=== PATIENT | male | born 1955 | race Caucasian/White ===

== ENCOUNTER 2018-04-14 12:56 | Inpatient (IN) | payer OTHER ==
[~2018-04-14] VITALS: Ht 172.7 cm; Wt 125.0 kg
[2018-04-14] VITALS (8 sets, daily range): BP systolic 136–158; BP diastolic 81–100
[2018-04-14] MEDS ORDERED: normal saline 1000ML IV soln IV ONE (13:15)
[2018-04-14] MEDS ORDERED: LORazepam 2 mg/ml vial IV ONE (13:15)
[2018-04-14] MEDS ORDERED: MIDAZolam 5mg/ml 2ml vial IV ONE (13:15)
[2018-04-14] MEDS ORDERED: fentaNYL/PF 50MCG/1 ML 2ML syringe IV ONE (13:15)
[2018-04-14] MEDS ORDERED: metoprolol tartrate 1mg/ml inj IV ONE (13:15)
[2018-04-14 13:22] LABS: BASOPHILS % (AUTO) 0.7 % (0-1); EOSINOPHILS % (AUTO) 0.2 % (0-6); HEMATOCRIT 48.5 % (42.0-52.0); HEMOGLOBIN 16.9 g/dl (14.0-17.9); LYMPHOCYTES % (AUTO) 39.3 % (21-51); MEAN CORPUSCULAR HEMOGLOBIN 35.7 PG (27.0-31.0); MEAN CORPUSCULAR HGB CONC 34.8 % (33.0-36.5); MEAN CORPUSCULAR VOLUME 102.8 FL (78-98); MEAN PLATELET VOLUME 7.8 FL (7.4-10.4); MONOCYTES # (AUTO) 0.9 X10'3 (0-0.9); MONOCYTES % (AUTO) 16.8 % (2-12); NEUTROPHILS # (AUTO) 2.3 X10'3 (1.8-7.7); PLATELET COUNT 122 X10'3 (140-440); RED BLOOD COUNT 4.72 X10'6 (4.70-6.10); RED CELL DISTRIBUTION WIDTH 11.9 % (11.5-14.5); WHITE BLOOD COUNT 5.2 X10'3 (4.5-11.0)
[2018-04-14] MEDS ORDERED: amiodarone 150mg/dext, iso-os 100 ML IV ONE (13:25)
[2018-04-14] MEDS ORDERED: magnesium 1gm/100ml D5W IVPB 100 ML IV STA (13:27)
[2018-04-14 13:33] LABS: ALANINE AMINOTRANSFERASE 61 U/L (12-78); ALBUMIN 3.7 G/DL (3.4-5.0); ALKALINE PHOSPHATASE 88 IU/L (46-116); ANION GAP 9 (8-16); ASPARTATE AMINO TRANSFERASE 62 U/L (10-37); BILIRUBIN,TOTAL 0.7 MG/DL (0.1-1.0); BLOOD UREA NITROGEN 9 MG/DL (7-18); CALCIUM 8.8 MG/DL (8.5-10.1); CHLORIDE 102 MMOL/L (99-107); CREATININE 1.13 MG/DL (0.60-1.10); GLUCOSE 157 MG/DL (70-104); POTASSIUM 3.8 MMOL/L (3.5-5.1); SODIUM 140 MMOL/L (135-145); TOTAL PROTEIN 7.5 G/DL (6.4-8.2); eGFR 65 ML/MIN
[2018-04-14 13:35] LABS: INR 1.3 INR; PARTIAL THROMBOPLASTIN TIME 34 SECONDS (22-32); PROTHROMBIN TIME 13.5 SECONDS (9.0-12.0)
[2018-04-14] MEDS ORDERED: aspirin 81mg tab.chew PO ONE (14:10)
[2018-04-14] MEDS ORDERED: morphine 4 MG/ML inj SYRINge IV ONE (14:10)
[2018-04-14] MEDS ORDERED: nitroGLYCERIN 0.4mg SUBLingual tab SL PRN (14:10)
[2018-04-14] MEDS: amiodarone/D5 360MG/200ML BAG 200 ML IV SCH ×2 (14:17→20:19)
[2018-04-14] MEDS ORDERED: TRAZ-219 PO (14:24)
[2018-04-14] MEDS ORDERED: PRAM0.5T3 PO (14:24)
[2018-04-14] MEDS ORDERED: RIVA20TA PO (14:24)
[2018-04-14] MEDS ORDERED: FLEC100T2 PO (14:24)
[2018-04-14] MEDS ORDERED: OMEP20TA23 PO (14:24)
[2018-04-14] MEDS ORDERED: METO100T7 PO (14:24)
[2018-04-14] MEDS ORDERED: amiodarone/D5 360MG/200ML BAG 200 ML IV SCH (14:42)
[2018-04-14] MEDS ORDERED: acetaminophen 325mg tablet PO PRN ×2 (14:45)
[2018-04-14] MEDS ORDERED: potassium Cl 20 mEq SR tablet PO PRN (14:45)
[2018-04-14] MEDS ORDERED: ondansetron/PF 4mg/2ml inj IV PRN (14:45)
[2018-04-14] MEDS ORDERED: potassium Cl 40MEQ/NS 500ml 500 ML IV PRN ×2 (14:45)
[2018-04-14] MEDS ORDERED: morphine 2 MG/ML inj. syringe IV PRN (14:45)
[2018-04-14 15:06] LABS: MAGNESIUM 1.8 MG/DL (1.5-2.4)
[2018-04-14] MEDS: docusate sod 100mg capsule PO SCH (20:51)
[2018-04-14] MEDS: pramipexole 0.25mg tablet PO SCH (20:51)
[2018-04-14] MEDS: traZODone 50mg tablet PO SCH (20:52)
[2018-04-14] MEDS: metoprolol succinate 25mg (24-HOUR) SR. Tablet PO SCH (20:52)
[2018-04-14] MEDS ORDERED: non-formulary drug (Metoprolol Succinate* (Toprol Xl*) 1 TAB) PO SCH (21:00)
[2018-04-14] MEDS ORDERED: PRAMIPEXOLE DI HCL 0.75 MG PO SCH (21:00)
[2018-04-14] MEDS ORDERED: non-formulary drug (Trazodone HCl 1 TAB) PO SCH (21:00)
[2018-04-15] VITALS (21 sets, daily range): BP systolic 108–175; BP diastolic 79–109
[2018-04-15] MEDS: amiodarone/D5 360MG/200ML BAG 200 ML IV SCH ×4 (01:33→20:21)
[2018-04-15 01:43] LABS: POTASSIUM 3.9 MMOL/L (3.5-5.1)
[2018-04-15] MEDS ORDERED: non-formulary drug (Omeprazole Magnesium (Prilosec Otc) 1 TAB) PO SCH (08:00)
[2018-04-15] MEDS ORDERED: rivaroxaban 20mg tablet PO SCH (08:00)
[2018-04-15] MEDS: docusate sod 100mg capsule PO SCH ×2 (08:00→20:21)
[2018-04-15] MEDS: pantoprazole 40mg Tablet.DR PO SCH (08:19)
[2018-04-15 08:28] LABS: BASOPHILS % (AUTO) 0.4 % (0-1); EOSINOPHILS % (AUTO) 1.1 % (0-6); HEMATOCRIT 46.5 % (42.0-52.0); HEMOGLOBIN 16.2 g/dl (14.0-17.9); LYMPHOCYTES # (AUTO) 1.3 X10'3 (1.1-4.8); LYMPHOCYTES % (AUTO) 29.8 % (21-51); MEAN CORPUSCULAR HEMOGLOBIN 35.6 PG (27.0-31.0); MEAN CORPUSCULAR HGB CONC 34.9 % (33.0-36.5); MEAN CORPUSCULAR VOLUME 102.2 FL (78-98); MONOCYTES # (AUTO) 0.6 X10'3 (0-0.9); MONOCYTES % (AUTO) 13.1 % (2-12); NEUTROPHILS # (AUTO) 2.5 X10'3 (1.8-7.7); NEUTROPHILS % (AUTO) 55.6 % (42-75); PLATELET COUNT 100 X10'3 (140-440); RED BLOOD COUNT 4.55 X10'6 (4.70-6.10); RED CELL DISTRIBUTION WIDTH 12.3 % (11.5-14.5); WHITE BLOOD COUNT 4.4 X10'3 (4.5-11.0)
[2018-04-15 08:33] LABS: ALANINE AMINOTRANSFERASE 64 U/L (12-78); ALBUMIN 3.3 G/DL (3.4-5.0); ALBUMIN/GLOBULIN RATIO 0.9 (1.1-1.5); ALKALINE PHOSPHATASE 77 IU/L (46-116); ANION GAP 5 (8-16); ASPARTATE AMINO TRANSFERASE 65 U/L (10-37); BILIRUBIN,TOTAL 0.6 MG/DL (0.1-1.0); BLOOD UREA NITROGEN 9 MG/DL (7-18); BUN/CREATININE RATIO 8.8 (5.4-32.0); CALCIUM 8.5 MG/DL (8.5-10.1); CHLORIDE 105 MMOL/L (99-107); CREATININE 1.02 MG/DL (0.60-1.10); GLUCOSE 119 MG/DL (70-104); MAGNESIUM 1.9 MG/DL (1.5-2.4); PHOSPHORUS 2.3 MG/DL (2.3-4.5); POTASSIUM 4.2 MMOL/L (3.5-5.1); SODIUM 141 MMOL/L (135-145); TOTAL CARBON DIOXIDE 30.9 MMOL/L (24-32); eGFR 74 ML/MIN
[2018-04-15 11:52] LABS: CHOL/HDL RATIO 3.2 (0.00-4.99); CHOLESTEROL 143 MG/DL (0-200); HDL CHOLESTEROL 45 MG/DL (35-60); LDL CHOLESTEROL 89 MG/DL (50-100); TRIGLYCERIDES 89 MG/DL (20-135)
[2018-04-15] MEDS: traZODone 50mg tablet PO SCH (20:22)
[2018-04-15] MEDS: metoprolol succinate 25mg (24-HOUR) SR. Tablet PO SCH (20:22)
[2018-04-15] MEDS: pramipexole 0.25mg tablet PO SCH (20:22)
[2018-04-16] VITALS (23 sets, daily range): BP systolic 114–171; BP diastolic 65–102
[2018-04-16] MEDS: amiodarone/D5 360MG/200ML BAG 200 ML IV SCH ×4 (02:39→20:51)
[2018-04-16 05:12] LABS: BASOPHILS % (AUTO) 0.3 % (0-1); EOSINOPHILS # (AUTO) 0.1 X10'3 (0-0.9); EOSINOPHILS % (AUTO) 1.3 % (0-6); HEMATOCRIT 46.8 % (42.0-52.0); HEMOGLOBIN 16.2 g/dl (14.0-17.9); LYMPHOCYTES # (AUTO) 1.4 X10'3 (1.1-4.8); LYMPHOCYTES % (AUTO) 30.6 % (21-51); MEAN CORPUSCULAR HEMOGLOBIN 35.8 PG (27.0-31.0); MEAN CORPUSCULAR HGB CONC 34.6 % (33.0-36.5); MEAN CORPUSCULAR VOLUME 103.4 FL (78-98); MEAN PLATELET VOLUME 7.8 FL (7.4-10.4); MONOCYTES # (AUTO) 0.4 X10'3 (0-0.9); MONOCYTES % (AUTO) 8.8 % (2-12); NEUTROPHILS # (AUTO) 2.7 X10'3 (1.8-7.7); PLATELET COUNT 104 X10'3 (140-440); RED BLOOD COUNT 4.53 X10'6 (4.70-6.10); RED CELL DISTRIBUTION WIDTH 11.9 % (11.5-14.5); WHITE BLOOD COUNT 4.6 X10'3 (4.5-11.0)
[2018-04-16 05:38] LABS: ALANINE AMINOTRANSFERASE 53 U/L (12-78); ALBUMIN/GLOBULIN RATIO 0.8 (1.1-1.5); ALKALINE PHOSPHATASE 71 IU/L (46-116); ANION GAP 6 (8-16); ASPARTATE AMINO TRANSFERASE 48 U/L (10-37); BILIRUBIN,TOTAL 0.5 MG/DL (0.1-1.0); BLOOD UREA NITROGEN 11 MG/DL (7-18); BUN/CREATININE RATIO 10.8 (5.4-32.0); CALCIUM 8.4 MG/DL (8.5-10.1); CHLORIDE 104 MMOL/L (99-107); CREATININE 1.02 MG/DL (0.60-1.10); GLUCOSE 140 MG/DL (70-104); MAGNESIUM 1.9 MG/DL (1.5-2.4); PHOSPHORUS 3.2 MG/DL (2.3-4.5); POTASSIUM 3.8 MMOL/L (3.5-5.1); SODIUM 139 MMOL/L (135-145); TOTAL CARBON DIOXIDE 28.9 MMOL/L (24-32); TOTAL PROTEIN 6.6 G/DL (6.4-8.2); eGFR 74 ML/MIN
[2018-04-16] MEDS ORDERED: fentaNYL/PF 50MCG/1 ML 2ML syringe ONE (06:02)
[2018-04-16] MEDS ORDERED: midazolam 2 mg/2 ml injection ONE (06:03)
[2018-04-16] MEDS ORDERED: LIDOcaine 1% (10mg/ml)w/preservative injection 20ml MDV ONE (06:03)
[2018-04-16] MEDS ORDERED: iohexol 350MG/ML 100ml bottle IV ONE (06:03)
[2018-04-16] MEDS ORDERED: heparin 1,000unit/ml 10ml vial 10 ML ONE (06:24)
[2018-04-16] MEDS ORDERED: nitroGLYCERIN-Tridil 50MG/D5W 250 ML IV ONE (06:24)
[2018-04-16] MEDS ORDERED: verapamil 2.5 mg/ml inj IV ONE (06:24)
[2018-04-16] MEDS: pantoprazole 40mg Tablet.DR PO SCH (07:56)
[2018-04-16] MEDS: docusate sod 100mg capsule PO SCH ×2 (07:56→20:38)
[2018-04-16] MEDS: HYDROcodone/acetaminophen 10/325mg tab PO PRN ×2 (07:57→18:37)
[2018-04-16] MEDS ORDERED: insulin regular, human inj. 100 UNITS in normal saline 100ml IV soln 100 ML IV SCH ×2 (08:25)
[2018-04-16] MEDS ORDERED: vancomycin/NS 1 GM ADD-VANTAGE 250 ML IV ONE (08:25)
[2018-04-16] MEDS ORDERED: dextrose 50%-water 50ml dispensing syringe IV PRN (08:25)
[2018-04-16] MEDS ORDERED: MESSAGE TO NURSING PO ONE ×5 (08:25→10:00)
[2018-04-16] MEDS ORDERED: cefazolin/dext.iso 2gm/50ml 50 ML IV ONE (08:25)
[2018-04-16] MEDS: insulin Lispro (HumaLOG) vial - multi-dose SQ SCH ×3 (09:00→18:00)
[2018-04-16 09:19] LABS: HEMATOCRIT 46.3 % (42.0-52.0); HEMOGLOBIN 16.6 g/dl (14.0-17.9); MEAN CORPUSCULAR HEMOGLOBIN 36.5 PG (27.0-31.0); MEAN CORPUSCULAR HGB CONC 35.9 % (33.0-36.5); MEAN CORPUSCULAR VOLUME 101.8 FL (78-98); MEAN PLATELET VOLUME 7.3 FL (7.4-10.4); PLATELET COUNT 106 X10'3 (140-440); RED BLOOD COUNT 4.55 X10'6 (4.70-6.10); WHITE BLOOD COUNT 4.4 X10'3 (4.5-11.0)
[2018-04-16 09:34] LABS: ALANINE AMINOTRANSFERASE 55 U/L (12-78); ALBUMIN 3.2 G/DL (3.4-5.0); ALBUMIN/GLOBULIN RATIO 0.9 (1.1-1.5); ALKALINE PHOSPHATASE 76 IU/L (46-116); ANION GAP 2 (8-16); ASPARTATE AMINO TRANSFERASE 45 U/L (10-37); BILIRUBIN,TOTAL 0.6 MG/DL (0.1-1.0); BLOOD UREA NITROGEN 9 MG/DL (7-18); CALCIUM 8.5 MG/DL (8.5-10.1); CHLORIDE 104 MMOL/L (99-107); GLUCOSE 119 MG/DL (70-104); POTASSIUM 4.1 MMOL/L (3.5-5.1); SODIUM 139 MMOL/L (135-145); TOTAL CARBON DIOXIDE 32.9 MMOL/L (24-32); TOTAL PROTEIN 6.7 G/DL (6.4-8.2); eGFR 75 ML/MIN
[2018-04-16 10:00] LABS: HEMOGLOBIN A1C 5.3 % (4.5-6.2)
[2018-04-16 10:02] LABS: INR 1.2 INR; PARTIAL THROMBOPLASTIN TIME 35 SECONDS (22-32)
[2018-04-16 13:20] LABS: ABG BASE EXCESS -0.2 mmol/L (-2.0-3.0); ABG HCO3 24.4 mmol/L (22.0-26.0); ABG OXYGEN SATURATION 95.1 % (95-98); ABG PCO2 (T) 39.6 mmHg (35.0-48.0); ABG PH (T) 7.407 (7.350-7.450); ABG PO2 (T) 78.4 mmHg (83-108); ALLEN'S TEST Positive; FCOHb 0.4 % (0.5-1.5); FLOW 6 L/min; FMetHb 0.2 % (0.3-1.12); FO2Hb 94.5 % (94-100); TOTAL HEMOGLOBIN 17.3 G/dl (14.0-18.0)
[2018-04-16 13:22] LABS: CLARITY,URINE CLEAR (Clear); COLOR,URINE YELLOW (Yellow); GLUCOSE, URINE NEGATIVE (Neg); KETONES,URINE NEGATIVE (Neg); LEUKOCYTE ESTERASE ,URINE NEGATIVE (Neg); NITRITES, URINE NEGATIVE (Neg); OCCULT BLOOD,URINE NEGATIVE (Neg); PROTEIN,URINE NEGATIVE (Neg)
[2018-04-16 13:28] LABS: UA COLLECTION TYPE NON-SPECIFIED
[2018-04-16] MEDS: pramipexole 0.25mg tablet PO SCH (20:37)
[2018-04-16] MEDS: metoprolol succinate 25mg (24-HOUR) SR. Tablet PO SCH (20:38)
[2018-04-16] MEDS: traZODone 50mg tablet PO SCH (20:38)
[2018-04-16] MEDS ORDERED: normal saline 1000ml 1,000 ML IV SCH (22:20)
[2018-04-16] MEDS ORDERED: ondansetron/PF 4mg/2ml inj IV PRN (22:20)
[2018-04-16] MEDS ORDERED: OXAZEpam 15mg capsule PO PRN (22:20)
[2018-04-16] MEDS ORDERED: proCHLORperazine 10 MG/2 ml inj IV PRN (22:25)
[2018-04-16] MEDS: mupirocin 2% nasal ointment 1gm UD NS SCH (22:37)
[2018-04-17] VITALS (20 sets, daily range): BP systolic 96–160; BP diastolic 60–98
[2018-04-17] MEDS: amiodarone/D5 360MG/200ML BAG 200 ML IV SCH ×4 (02:55→18:36)
[2018-04-17] MEDS ORDERED: ringers solution, lacted 1,000 ML IV ONE (05:30)
[2018-04-17] MEDS ORDERED: vancomycin/NS 1 GM ADD-VANTAGE 250 ML IV ONE (05:30)
[2018-04-17] MEDS ORDERED: cefazolin/dext.iso 2gm/100ml 100 ML IV ONE ×2 (05:30→06:00)
[2018-04-17] MEDS: insulin regular, human inj. 100 UNITS in normal saline 100ml IV soln 100 ML IV SCH ×12 (05:40→23:58)
[2018-04-17] MEDS ORDERED: famotidine 20mg tablet PO ONE (06:00)
[2018-04-17] MEDS ORDERED: LORazepam 2 mg/ml vial IV ONE (06:00)
[2018-04-17 06:34] LABS: BASOPHILS % (AUTO) 0.4 % (0-1); EOSINOPHILS # (AUTO) 0.1 X10'3 (0-0.9); EOSINOPHILS % (AUTO) 1.3 % (0-6); HEMATOCRIT 46.8 % (42.0-52.0); HEMOGLOBIN 16.6 g/dl (14.0-17.9); LYMPHOCYTES # (AUTO) 1.5 X10'3 (1.1-4.8); LYMPHOCYTES % (AUTO) 27.6 % (21-51); MEAN CORPUSCULAR HEMOGLOBIN 36.3 PG (27.0-31.0); MEAN CORPUSCULAR HGB CONC 35.5 % (33.0-36.5); MEAN CORPUSCULAR VOLUME 102.3 FL (78-98); MEAN PLATELET VOLUME 7.8 FL (7.4-10.4); MONOCYTES # (AUTO) 0.5 X10'3 (0-0.9); MONOCYTES % (AUTO) 8.5 % (2-12); NEUTROPHILS # (AUTO) 3.3 X10'3 (1.8-7.7); NEUTROPHILS % (AUTO) 62.2 % (42-75); PLATELET COUNT 113 X10'3 (140-440); RED BLOOD COUNT 4.57 X10'6 (4.70-6.10); RED CELL DISTRIBUTION WIDTH 11.9 % (11.5-14.5); WHITE BLOOD COUNT 5.4 X10'3 (4.5-11.0)
[2018-04-17] MEDS: mupirocin 2% nasal ointment 1gm UD NS SCH ×2 (06:54→20:00)
[2018-04-17] MEDS ORDERED: isoflurane 100ml inhalation liquid IH ONE (07:01)
[2018-04-17] MEDS ORDERED: heparin 10,000 units/1 ML INJ ONE (07:01)
[2018-04-17] MEDS ORDERED: magnesium sulf 1 GM/2 ML ONE (07:01)
[2018-04-17] MEDS ORDERED: phenylephrine 10mg/ml inj. ONE (07:01)
[2018-04-17] MEDS ORDERED: DOPamine/D5W 400mg/250ml bag IV ONE (07:01)
[2018-04-17] MEDS ORDERED: MIDAZolam 1mg/ml 10ml vial ONE (07:01)
[2018-04-17] MEDS ORDERED: potassium Cl 2 mEq/ml inj IV ONE (07:01)
[2018-04-17] MEDS ORDERED: SUFENTANIL CITRATE 50 MCG/ML 2ml ampule IV ONE (07:01)
[2018-04-17] MEDS ORDERED: sodium bicarbonate (8.4%) 1 mEq/ml syringe ONE (07:01)
[2018-04-17] MEDS ORDERED: albumin (human) 25% 100 ML IV solution IV ONE (07:01)
[2018-04-17] MEDS ORDERED: LIDOcaine 2% (20 mg/ml) 5ml cardiac syringe ONE (07:01)
[2018-04-17] MEDS ORDERED: methylPREDNISolone sod succ 1000mg vial ONE (07:01)
[2018-04-17] MEDS ORDERED: heparin 1,000 units/ml 10ml inj ONE (07:01)
[2018-04-17] MEDS ORDERED: aminocaproic acid 250 MG/1 ML inj. ONE (07:01)
[2018-04-17] MEDS ORDERED: calcium chloride 100 MG/1 ML inj IV ONE (07:01)
[2018-04-17 07:02] LABS: ALANINE AMINOTRANSFERASE 53 U/L (12-78); ALBUMIN 3.2 G/DL (3.4-5.0); ALBUMIN/GLOBULIN RATIO 0.9 (1.1-1.5); ALKALINE PHOSPHATASE 80 IU/L (46-116); ANION GAP 9 (8-16); ASPARTATE AMINO TRANSFERASE 41 U/L (10-37); BILIRUBIN,TOTAL 0.6 MG/DL (0.1-1.0); BLOOD UREA NITROGEN 11 MG/DL (7-18); BUN/CREATININE RATIO 12.4 (5.4-32.0); CALCIUM 8.5 MG/DL (8.5-10.1); CHLORIDE 103 MMOL/L (99-107); CREATININE 0.89 MG/DL (0.60-1.10); GLUCOSE 95 MG/DL (70-104); MAGNESIUM 1.9 MG/DL (1.5-2.4); PHOSPHORUS 3.2 MG/DL (2.3-4.5); POTASSIUM 3.9 MMOL/L (3.5-5.1); SODIUM 140 MMOL/L (135-145); TOTAL CARBON DIOXIDE 28.4 MMOL/L (24-32); TOTAL PROTEIN 6.9 G/DL (6.4-8.2); eGFR 86 ML/MIN
[2018-04-17] MEDS: pantoprazole 40mg Tablet.DR PO SCH (07:30)
[2018-04-17] MEDS: docusate sod 100mg capsule PO SCH ×2 (07:51→20:00)
[2018-04-17 07:55] LABS: ABG HCO3 25.1 mmol/L (22.0-26.0); ABG OXYGEN SATURATION 97.8 % (95-98); ABG PCO2 38.5 mmHg (35.0-45.0); ABG PH 7.432 (7.350-7.450); ABG PO2 107.8 mmHg (60.0-100.0); CL (ABG) 103 mmol/L (99-107); FCOHb 0.9 % (0.5-1.5); FMetHb 0.1 % (0.3-1.12); FO2Hb 96.8 % (94-100); GLUCOSE (ABG) 138 mg/dl (70-105); IONIZED CA (ABG) 1.11 mmol/L (1.03-1.32); K (ABG) 4.1 mmol/L (3.3-5.1); NA (ABG) 131 mmol/L (135-145); TOTAL HEMOGLOBIN 14.9 G/dl (14.0-18.0)
[2018-04-17] MEDS ORDERED: papaverine 30 mg/ml 2ml inj. IA ONE (08:19)
[2018-04-17] MEDS ORDERED: heparin 10,000 units/1 ML INJ IR ONE (08:19)
[2018-04-17] MEDS: insulin Lispro (HumaLOG) vial - multi-dose SQ SCH ×4 (09:00→18:00)
[2018-04-17 09:06] LABS: ABG BASE EXCESS 1.6 mmol/L (-2.0-3.0); ABG HCO3 25.8 mmol/L (22.0-26.0); ABG OXYGEN SATURATION 99.5 % (95-98); ABG PCO2 39.2 mmHg (35.0-45.0); ABG PH 7.436 (7.350-7.450); CL (ABG) 101 mmol/L (99-107); FCOHb 0.6 % (0.5-1.5); FMetHb 0.3 % (0.3-1.12); FO2Hb 98.6 % (94-100); GLUCOSE (ABG) 118 mg/dl (70-105); IONIZED CA (ABG) 1.01 mmol/L (1.03-1.32); K (ABG) 4.1 mmol/L (3.3-5.1); NA (ABG) 130 mmol/L (135-145); TOTAL HEMOGLOBIN 12.5 G/dl (14.0-18.0)
[2018-04-17 09:21] LABS: ABG BASE EXCESS VENOUS 0.9 mmol/L; ABG HCO3 VENOUS 25.6 mmol/L; ABG PCO2 VENOUS 41.2 mmHg; ABG PO2 VENOUS 56.4 mmHg; CL (ABG) 102 mmol/L (99-107); FCOHb VENOUS 0.8 %; FHHb VENOUS 11.8 %; FMetHb VENOUS 0.3 %; FO2Hb VENOUS 87.1 %; GLUCOSE (ABG) 122 mg/dl (70-105); IONIZED CA (ABG) 1.03 mmol/L (1.03-1.32); NA (ABG) 131 mmol/L (135-145); TOTAL HEMOGLOBIN 12.4 G/dl (14.0-18.0)
[2018-04-17 09:56] LABS: ABG BASE EXCESS -1.5 mmol/L (-2.0-3.0); ABG OXYGEN SATURATION 99.1 % (95-98); ABG PCO2 38.3 mmHg (35.0-45.0); ABG PH 7.397 (7.350-7.450); ABG PO2 219.2 mmHg (60.0-100.0); CL (ABG) 103 mmol/L (99-107); FCOHb 0.6 % (0.5-1.5); FMetHb 0.3 % (0.3-1.12); FO2Hb 98.2 % (94-100); GLUCOSE (ABG) 135 mg/dl (70-105); IONIZED CA (ABG) 1.01 mmol/L (1.03-1.32); NA (ABG) 131 mmol/L (135-145); TOTAL HEMOGLOBIN 12.6 G/dl (14.0-18.0)
[2018-04-17 10:20] LABS: ABG BASE EXCESS -1.7 mmol/L (-2.0-3.0); ABG HCO3 22.9 mmol/L (22.0-26.0); ABG PCO2 38.6 mmHg (35.0-45.0); ABG PH 7.392 (7.350-7.450); ABG PO2 222.7 mmHg (60.0-100.0); CL (ABG) 103 mmol/L (99-107); FCOHb 0.4 % (0.5-1.5); FMetHb 0.2 % (0.3-1.12); FO2Hb 98.4 % (94-100); GLUCOSE (ABG) 144 mg/dl (70-105); IONIZED CA (ABG) 1.01 mmol/L (1.03-1.32); K (ABG) 5.7 mmol/L (3.3-5.1); NA (ABG) 130 mmol/L (135-145); TOTAL HEMOGLOBIN 12.6 G/dl (14.0-18.0)
[2018-04-17] MEDS ORDERED: ceFAZolin 1000mg inj ONE (10:38)
[2018-04-17] MEDS ORDERED: succinylcholine 20mg/ml inj IV ONE (10:39)
[2018-04-17] MEDS ORDERED: ePHEDrine 50MG/ML INJ. ONE (10:39)
[2018-04-17] MEDS ORDERED: rocuronium 10mg/ml inj IV ONE (10:39)
[2018-04-17] MEDS ORDERED: LIDOcaine 2% (20mg/ml) 5ml vial ONE (10:39)
[2018-04-17] MEDS ORDERED: etomidate 2mg/ml inj. ONE (10:39)
[2018-04-17 11:00] LABS: ABG BASE EXCESS -2.1 mmol/L (-2.0-3.0); ABG HCO3 22.2 mmol/L (22.0-26.0); ABG OXYGEN SATURATION 98.8 % (95-98); ABG PCO2 36.3 mmHg (35.0-45.0); ABG PH 7.404 (7.350-7.450); ABG PO2 176.8 mmHg (60.0-100.0); CL (ABG) 104 mmol/L (99-107); FCOHb 0.5 % (0.5-1.5); FMetHb 0.2 % (0.3-1.12); FO2Hb 98.1 % (94-100); GLUCOSE (ABG) 161 mg/dl (70-105); IONIZED CA (ABG) 1.02 mmol/L (1.03-1.32); K (ABG) 6.1 mmol/L (3.3-5.1); NA (ABG) 130 mmol/L (135-145); TOTAL HEMOGLOBIN 12.3 G/dl (14.0-18.0)
[2018-04-17 11:26] LABS: ABG BASE EXCESS 0.8 mmol/L (-2.0-3.0); ABG HCO3 25.5 mmol/L (22.0-26.0); ABG OXYGEN SATURATION 99.3 % (95-98); ABG PH 7.411 (7.350-7.450); ABG PO2 428.5 mmHg (60.0-100.0); CL (ABG) 102 mmol/L (99-107); FCOHb 0.3 % (0.5-1.5); FMetHb 0.2 % (0.3-1.12); FO2Hb 98.8 % (94-100); GLUCOSE (ABG) 154 mg/dl (70-105); K (ABG) 5.6 mmol/L (3.3-5.1); NA (ABG) 128 mmol/L (135-145); TOTAL HEMOGLOBIN 11.3 G/dl (14.0-18.0)
[2018-04-17 12:06] LABS: ABG BASE EXCESS -3.9 mmol/L (-2.0-3.0); ABG HCO3 20.9 mmol/L (22.0-26.0); ABG OXYGEN SATURATION 99.4 % (95-98); ABG PCO2 37.2 mmHg (35.0-45.0); ABG PH 7.368 (7.350-7.450); ABG PO2 408.3 mmHg (60.0-100.0); CL (ABG) 106 mmol/L (99-107); FCOHb 0.5 % (0.5-1.5); FMetHb 0.3 % (0.3-1.12); FO2Hb 98.6 % (94-100); GLUCOSE (ABG) 164 mg/dl (70-105); IONIZED CA (ABG) 1.11 mmol/L (1.03-1.32); K (ABG) 4.5 mmol/L (3.3-5.1); NA (ABG) 132 mmol/L (135-145); TOTAL HEMOGLOBIN 12.1 G/dl (14.0-18.0)
[2018-04-17 12:26] LABS: ABG BASE EXCESS -0.2 mmol/L (-2.0-3.0); ABG HCO3 24.7 mmol/L (22.0-26.0); ABG OXYGEN SATURATION 99.2 % (95-98); ABG PCO2 41.1 mmHg (35.0-45.0); ABG PH 7.396 (7.350-7.450); ABG PO2 410.9 mmHg (60.0-100.0); CL (ABG) 105 mmol/L (99-107); FCOHb 0.4 % (0.5-1.5); FMetHb 0.3 % (0.3-1.12); FO2Hb 98.5 % (94-100); GLUCOSE (ABG) 182 mg/dl (70-105); IONIZED CA (ABG) 1.03 mmol/L (1.03-1.32); K (ABG) 4.5 mmol/L (3.3-5.1); NA (ABG) 133 mmol/L (135-145); TOTAL HEMOGLOBIN 12.1 G/dl (14.0-18.0)
[2018-04-17 13:01] LABS: ABG BASE EXCESS -3.2 mmol/L (-2.0-3.0); ABG HCO3 22.7 mmol/L (22.0-26.0); ABG OXYGEN SATURATION 95.7 % (95-98); ABG PCO2 44.2 mmHg (35.0-45.0); ABG PH 7.329 (7.350-7.450); ABG PO2 94.3 mmHg (60.0-100.0); CL (ABG) 106 mmol/L (99-107); FCOHb 0.4 % (0.5-1.5); FMetHb 0.2 % (0.3-1.12); FO2Hb 95.1 % (94-100); GLUCOSE (ABG) 206 mg/dl (70-105); IONIZED CA (ABG) 1.02 mmol/L (1.03-1.32); NA (ABG) 140 mmol/L (135-145); TOTAL HEMOGLOBIN 11.4 G/dl (14.0-18.0)
[2018-04-17] MEDS ORDERED: nitroGLYCERIN-Tridil 50MG/D5W 250 ML IV PRN (13:31)
[2018-04-17] MEDS: sodium chloride 0.45% 1,000 ML IV SCH ×2 (13:31→22:52)
[2018-04-17] MEDS ORDERED: DOPamine 400mg/D5W 250ml 250 ML IV PRN (13:31)
[2018-04-17] MEDS ORDERED: niCARDipine-NS 40mg/200ml IVPB 200 ML IV PRN (13:31)
[2018-04-17] MEDS ORDERED: sodium phosphate inj. 30 MMOL in dextrose 5%-water 250 ML IV PRN (13:35)
[2018-04-17] MEDS ORDERED: magnesium 4gm in 100ml NS 100 ML IV PRN (13:35)
[2018-04-17] MEDS ORDERED: dextrose 50%-water 50ml dispensing syringe IV PRN (13:35)
[2018-04-17] MEDS ORDERED: acetaminophen 325mg tablet PO PRN (13:35)
[2018-04-17] MEDS ORDERED: ondansetron/PF 4mg/2ml inj IV PRN (13:35)
[2018-04-17] MEDS ORDERED: morphine 4 MG/ML inj SYRINge IV PRN (13:35)
[2018-04-17] MEDS ORDERED: normal saline 250ml IV soln 250 ML IV PRN (13:35)
[2018-04-17] MEDS ORDERED: sodium phosphate inj. 15 MMOL in dextrose 5%-water 150 ML IV PRN (13:35)
[2018-04-17] MEDS ORDERED: insulin regular, human inj. 100 UNITS in normal saline 100ml IV soln 100 ML IV SCH ×2 (13:35)
[2018-04-17] MEDS ORDERED: potassium Cl 20mEq/100mL bag 100 ML IV PRN ×2 (13:35)
[2018-04-17] MEDS ORDERED: magnesium hydroxide 30ml (MOM) UD suspension PO PRN (13:35)
[2018-04-17] MEDS ORDERED: metoclopramide 5 mg/ml inj IV PRN (13:35)
[2018-04-17] MEDS ORDERED: morphine 10mg/ml inj. ONE (13:43)
[2018-04-17] MEDS ORDERED: insulin regular, human vial - multi-dose ONE (13:44)
[2018-04-17 13:46] LABS: ABG BASE EXCESS -4.1 mmol/L (-2.0-3.0); ABG HCO3 22.7 mmol/L (22.0-26.0); ABG OXYGEN SATURATION 70.5 % (95-98); ABG PH 7.293 (7.350-7.450); CL (ABG) 105 mmol/L (99-107); FCOHb 0.9 % (0.5-1.5); FMetHb 0.5 % (0.3-1.12); FO2Hb 69.5 % (94-100); GLUCOSE (ABG) 184 mg/dl (70-105); IONIZED CA (ABG) 0.99 mmol/L (1.03-1.32); K (ABG) 4.1 mmol/L (3.3-5.1); NA (ABG) 136 mmol/L (135-145); TOTAL HEMOGLOBIN 14.1 G/dl (14.0-18.0)
[2018-04-17] MEDS ORDERED: insulin regular, human vial - multi-dose SQ ONE (14:30)
[2018-04-17 14:35] LABS: ABG BASE EXCESS -2.3 mmol/L (-2.0-3.0); ABG HCO3 24.6 mmol/L (22.0-26.0); ABG OXYGEN SATURATION 91.9 % (95-98); ABG PCO2 (T) 48.8 mmHg (35.0-48.0); ABG PH (T) 7.317 (7.350-7.450); ABG PO2 (T) 67.3 mmHg (83-108); FMetHb 0.2 % (0.3-1.12); FO2Hb 90.8 % (94-100); MINUTE VOLUME 8 L/min; PATIENT TEMPERATURE 36.3; PEEP 5 cm H2O; RESPIRATORY RATE 12 b/min; RESPIRATORY RATE (OBSERVED) 12 b/min; TIDAL VOLUME 700 mL; TOTAL HEMOGLOBIN 14.6 G/dl (14.0-18.0)
[2018-04-17 14:38] LABS: BASOPHILS % (AUTO) 0.2 % (0-1); EOSINOPHILS # (AUTO) 0.1 X10'3 (0-0.9); EOSINOPHILS % (AUTO) 0.8 % (0-6); HEMATOCRIT 39.4 % (42.0-52.0); HEMOGLOBIN 13.5 g/dl (14.0-17.9); LYMPHOCYTES # (AUTO) 0.9 X10'3 (1.1-4.8); LYMPHOCYTES % (AUTO) 11.5 % (21-51); MEAN CORPUSCULAR HEMOGLOBIN 35.4 PG (27.0-31.0); MEAN CORPUSCULAR HGB CONC 34.4 % (33.0-36.5); MEAN CORPUSCULAR VOLUME 102.9 FL (78-98); MEAN PLATELET VOLUME 7.3 FL (7.4-10.4); MONOCYTES # (AUTO) 0.3 X10'3 (0-0.9); MONOCYTES % (AUTO) 4.3 % (2-12); NEUTROPHILS # (AUTO) 6.5 X10'3 (1.8-7.7); NEUTROPHILS % (AUTO) 83.2 % (42-75); PLATELET COUNT 127 X10'3 (140-440); RED BLOOD COUNT 3.82 X10'6 (4.70-6.10); RED CELL DISTRIBUTION WIDTH 12.9 % (11.5-14.5); WHITE BLOOD COUNT 7.8 X10'3 (4.5-11.0)
[2018-04-17 14:54] LABS: ALANINE AMINOTRANSFERASE 34 U/L (12-78); ALBUMIN 2.6 G/DL (3.4-5.0); ALBUMIN/GLOBULIN RATIO 1.1 (1.1-1.5); ALKALINE PHOSPHATASE 52 IU/L (46-116); ANION GAP 7 (8-16); BILIRUBIN,TOTAL 1.2 MG/DL (0.1-1.0); BLOOD UREA NITROGEN 13 MG/DL (7-18); BUN/CREATININE RATIO 11.5 (5.4-32.0); CALCIUM 7.4 MG/DL (8.5-10.1); CHLORIDE 109 MMOL/L (99-107); CREATININE 1.13 MG/DL (0.60-1.10); GLUCOSE 186 MG/DL (70-104); MAGNESIUM 2.8 MG/DL (1.5-2.4); SODIUM 143 MMOL/L (135-145); TOTAL CARBON DIOXIDE 26.9 MMOL/L (24-32); eGFR 65 ML/MIN
[2018-04-17 14:56] LABS: ASPARTATE AMINO TRANSFERASE 146 U/L (10-37); PHOSPHORUS 2.4 MG/DL (2.3-4.5); POTASSIUM 4.2 MMOL/L (3.5-5.1)
[2018-04-17 14:57] LABS: INR 1.2 INR; PARTIAL THROMBOPLASTIN TIME 54 SECONDS (22-32); PROTHROMBIN TIME 12.1 SECONDS (9.0-12.0)
[2018-04-17] MEDS: morphine 4 MG/ML inj SYRINge IV PRN ×4 (15:05→23:05)
[2018-04-17] MEDS: potassium Cl 20mEq/100mL bag 100 ML IV PRN (15:27)
[2018-04-17] MEDS: ceFAZolin 1GM/D5W- ADD-VANTAGE 50 ML IV SCH ×2 (17:24→23:24)
[2018-04-17] MEDS ORDERED: propofol 1000mg/100ml bottle 100 ML IV ONE (17:47)
[2018-04-17] MEDS: albumin (Human) 5% 250ml 250 ML IV PRN ×2 (17:57→18:01)
[2018-04-17 19:53] LABS: BASOPHILS % (AUTO) 0 % (0-1); EOSINOPHILS % (AUTO) 0 % (0-6); HEMATOCRIT 34.7 % (42.0-52.0); HEMOGLOBIN 11.9 g/dl (14.0-17.9); LYMPHOCYTES # (AUTO) 0.2 X10'3 (1.1-4.8); LYMPHOCYTES % (AUTO) 2.7 % (21-51); MEAN CORPUSCULAR HEMOGLOBIN 35.2 PG (27.0-31.0); MEAN CORPUSCULAR HGB CONC 34.3 % (33.0-36.5); MEAN CORPUSCULAR VOLUME 102.7 FL (78-98); MEAN PLATELET VOLUME 7.3 FL (7.4-10.4); MONOCYTES # (AUTO) 0.4 X10'3 (0-0.9); MONOCYTES % (AUTO) 5.9 % (2-12); NEUTROPHILS # (AUTO) 6.6 X10'3 (1.8-7.7); NEUTROPHILS % (AUTO) 91.4 % (42-75); PLATELET COUNT 105 X10'3 (140-440); RED BLOOD COUNT 3.38 X10'6 (4.70-6.10); RED CELL DISTRIBUTION WIDTH 12.7 % (11.5-14.5); WHITE BLOOD COUNT 7.2 X10'3 (4.5-11.0)
[2018-04-17] MEDS ORDERED: docusate sod 100mg capsule PO SCH (20:00)
[2018-04-17] MEDS ORDERED: mupirocin 2% nasal ointment 1gm UD NS SCH (20:00)
[2018-04-17] MEDS: traZODone 50mg tablet PO SCH (20:07)
[2018-04-17] MEDS: pramipexole 0.25mg tablet PO SCH (20:07)
[2018-04-17 20:08] LABS: ALBUMIN 2.9 G/DL (3.4-5.0); ANION GAP 9 (8-16); BLOOD UREA NITROGEN 16 MG/DL (7-18); BUN/CREATININE RATIO 11.9 (5.4-32.0); CALCIUM 7.3 MG/DL (8.5-10.1); CHLORIDE 109 MMOL/L (99-107); CREATININE 1.35 MG/DL (0.60-1.10); GLUCOSE 216 MG/DL (70-104); POTASSIUM 5.2 MMOL/L (3.5-5.1); SODIUM 141 MMOL/L (135-145); eGFR 53 ML/MIN
[2018-04-17] MEDS: metoprolol succinate 25mg (24-HOUR) SR. Tablet PO SCH (20:08)
[2018-04-17] MEDS: vancomycin/NS 1 GM ADD-VANTAGE 250 ML IV SCH (20:22)
[2018-04-18] VITALS (24 sets, daily range): BP systolic 101–132; BP diastolic 49–67
[2018-04-18] MEDS: propofol 1000mg/100ml bottle 100 ML IV PRN ×3 (01:40→22:07)
[2018-04-18 03:45] LABS: ABG BASE EXCESS -0.5 mmol/L (-2.0-3.0); ABG HCO3 24.1 mmol/L (22.0-26.0); ABG OXYGEN SATURATION 93.7 % (95-98); ABG PCO2 (T) 38.7 mmHg (35.0-48.0); ABG PH (T) 7.411 (7.350-7.450); ABG PO2 (T) 69.4 mmHg (83-108); FCOHb 0.3 % (0.5-1.5); FO2Hb 93.4 % (94-100); MINUTE VOLUME 10 L/min; PATIENT TEMPERATURE 36.6; PEEP 10 cm H2O; RESPIRATORY RATE 12 b/min; RESPIRATORY RATE (OBSERVED) 12 b/min; TIDAL VOLUME 800 mL; TOTAL HEMOGLOBIN 11.3 G/dl (14.0-18.0)
[2018-04-18 04:01] LABS: INR 1.2 INR; PARTIAL THROMBOPLASTIN TIME 30 SECONDS (22-32)
[2018-04-18 04:03] LABS: ALANINE AMINOTRANSFERASE 33 U/L (12-78); ALBUMIN 2.6 G/DL (3.4-5.0); ALBUMIN/GLOBULIN RATIO 1.2 (1.1-1.5); ALKALINE PHOSPHATASE 38 IU/L (46-116); ANION GAP 4 (8-16); ASPARTATE AMINO TRANSFERASE 129 U/L (10-37); BILIRUBIN,TOTAL 0.6 MG/DL (0.1-1.0); BLOOD UREA NITROGEN 17 MG/DL (7-18); CALCIUM 7.6 MG/DL (8.5-10.1); CHLORIDE 112 MMOL/L (99-107); CREATININE 1.21 MG/DL (0.60-1.10); GLUCOSE 83 MG/DL (70-104); MAGNESIUM 2.4 MG/DL (1.5-2.4); PHOSPHORUS 1.6 MG/DL (2.3-4.5); POTASSIUM 4.1 MMOL/L (3.5-5.1); SODIUM 143 MMOL/L (135-145); TOTAL CARBON DIOXIDE 27.4 MMOL/L (24-32); TOTAL PROTEIN 4.7 G/DL (6.4-8.2); eGFR 60 ML/MIN
[2018-04-18 04:05] LABS: BASOPHILS % (AUTO) 0 % (0-1); EOSINOPHILS # (AUTO) 0.1 X10'3 (0-0.9); EOSINOPHILS % (AUTO) 0.9 % (0-6); HEMATOCRIT 30.3 % (42.0-52.0); HEMOGLOBIN 10.3 g/dl (14.0-17.9); LYMPHOCYTES # (AUTO) 0.5 X10'3 (1.1-4.8); LYMPHOCYTES % (AUTO) 5.3 % (21-51); MEAN CORPUSCULAR HGB CONC 33.9 % (33.0-36.5); MEAN CORPUSCULAR VOLUME 103.4 FL (78-98); MEAN PLATELET VOLUME 8.1 FL (7.4-10.4); MONOCYTES % (AUTO) 10.6 % (2-12); NEUTROPHILS # (AUTO) 7.5 X10'3 (1.8-7.7); NEUTROPHILS % (AUTO) 83.2 % (42-75); PLATELET COUNT 94 X10'3 (140-440); RED BLOOD COUNT 2.93 X10'6 (4.70-6.10); RED CELL DISTRIBUTION WIDTH 12.5 % (11.5-14.5); WHITE BLOOD COUNT 9.1 X10'3 (4.5-11.0)
[2018-04-18] MEDS: Neutra Phos packet PO PRN ×2 (04:24→21:16)
[2018-04-18] MEDS: morphine 4 MG/ML inj SYRINge IV PRN ×4 (04:24→22:07)
[2018-04-18] MEDS: magnesium 1gm/100ml D5W IVPB 100 ML IV PRN ×2 (04:25→17:39)
[2018-04-18] MEDS: amiodarone/D5 360MG/200ML BAG 200 ML IV SCH ×4 (06:08→18:33)
[2018-04-18] MEDS: vancomycin/NS 1 GM ADD-VANTAGE 250 ML IV SCH ×2 (07:58→21:17)
[2018-04-18] MEDS: metoprolol tartrate 12.5mg (1/2 tablet) PO SCH ×2 (07:59→21:17)
[2018-04-18] MEDS: ceFAZolin 1GM/D5W- ADD-VANTAGE 50 ML IV SCH ×2 (07:59→16:29)
[2018-04-18] MEDS: pantoprazole 40mg Tablet.DR PO SCH (07:59)
[2018-04-18] MEDS: atorvastatin 10mg tablet PO SCH (08:00)
[2018-04-18] MEDS: docusate sod 100mg capsule PO SCH (08:00)
[2018-04-18] MEDS: aspirin 325mg tablet, delayed-release (Ecotrin) PO SCH (08:00)
[2018-04-18] MEDS: mupirocin 2% nasal ointment 1gm UD NS SCH (08:07)
[2018-04-18] MEDS: insulin Lispro (HumaLOG) vial - multi-dose SQ SCH ×3 (08:54→17:40)
[2018-04-18] MEDS ORDERED: furosemide 40mg/4ml inj IV ONE (09:00)
[2018-04-18 12:06] LABS: ABG BASE EXCESS -1.2 mmol/L (-2.0-3.0); ABG HCO3 22.8 mmol/L (22.0-26.0); ABG OXYGEN SATURATION 92.6 % (95-98); ABG PCO2 (T) 35.6 mmHg (35.0-48.0); ABG PH (T) 7.425 (7.350-7.450); ABG PO2 (T) 63.8 mmHg (83-108); FCOHb 0.3 % (0.5-1.5); FMetHb 0.1 % (0.3-1.12); FO2Hb 92.2 % (94-100); MINUTE VOLUME 10 L/min; PEEP 10 cm H2O; RESPIRATORY RATE 12 b/min; RESPIRATORY RATE (OBSERVED) 12 b/min; TIDAL VOLUME 800 mL; TOTAL HEMOGLOBIN 11.2 G/dl (14.0-18.0)
[2018-04-18 15:20] LABS: ABG BASE EXCESS -1.6 mmol/L (-2.0-3.0); ABG HCO3 21.7 mmol/L (22.0-26.0); ABG OXYGEN SATURATION 90.3 % (95-98); ABG PCO2 (T) 31.9 mmHg (35.0-48.0); ABG PH (T) 7.451 (7.350-7.450); ABG PO2 (T) 59.9 mmHg (83-108); FCOHb 0.3 % (0.5-1.5); MINUTE VOLUME 10 L/min; PATIENT TEMPERATURE 37.2; PEEP 10 cm H2O; RESPIRATORY RATE 12 b/min; RESPIRATORY RATE (OBSERVED) 12 b/min; TIDAL VOLUME 800 mL; TOTAL HEMOGLOBIN 11.1 G/dl (14.0-18.0)
[2018-04-18] MEDS ORDERED: furosemide 20 MG/2 ML vial IV ONE (15:30)
[2018-04-18 17:03] LABS: ALANINE AMINOTRANSFERASE 34 U/L (12-78); ALBUMIN 2.7 G/DL (3.4-5.0); ALBUMIN/GLOBULIN RATIO 1.1 (1.1-1.5); ALKALINE PHOSPHATASE 51 IU/L (46-116); ANION GAP 8 (8-16); ASPARTATE AMINO TRANSFERASE 111 U/L (10-37); BILIRUBIN,TOTAL 0.4 MG/DL (0.1-1.0); BLOOD UREA NITROGEN 18 MG/DL (7-18); BUN/CREATININE RATIO 15.1 (5.4-32.0); CALCIUM 7.4 MG/DL (8.5-10.1); CHLORIDE 107 MMOL/L (99-107); CREATININE 1.19 MG/DL (0.60-1.10); GLUCOSE 116 MG/DL (70-104); MAGNESIUM 2.3 MG/DL (1.5-2.4); POTASSIUM 4.5 MMOL/L (3.5-5.1); SODIUM 141 MMOL/L (135-145); TOTAL CARBON DIOXIDE 26.3 MMOL/L (24-32); TOTAL PROTEIN 5.2 G/DL (6.4-8.2); eGFR 62 ML/MIN
[2018-04-18 18:56] LABS: ABG BASE EXCESS -0.6 mmol/L (-2.0-3.0); ABG HCO3 22.4 mmol/L (22.0-26.0); ABG OXYGEN SATURATION 91.2 % (95-98); ABG PCO2 (T) 31.7 mmHg (35.0-48.0); ABG PH (T) 7.468 (7.350-7.450); ABG PO2 (T) 60.8 mmHg (83-108); FCOHb 0.3 % (0.5-1.5); FO2Hb 90.9 % (94-100); MINUTE VOLUME 10 L/min; PEEP 10 cm H2O; RESPIRATORY RATE 12 b/min; RESPIRATORY RATE (OBSERVED) 12 b/min; TIDAL VOLUME 800 mL; TOTAL HEMOGLOBIN 11.3 G/dl (14.0-18.0)
[2018-04-18] MEDS: metoprolol succinate 25mg (24-HOUR) SR. Tablet PO SCH (21:00)
[2018-04-18] MEDS: pramipexole 0.25mg tablet PO SCH (21:16)
[2018-04-18] MEDS: traZODone 50mg tablet PO SCH (21:16)
[2018-04-19] VITALS (24 sets, daily range): BP systolic 104–150; BP diastolic 50–69
[2018-04-19] MEDS: ceFAZolin 1GM/D5W- ADD-VANTAGE 50 ML IV SCH (00:27)
[2018-04-19] MEDS: morphine 4 MG/ML inj SYRINge IV PRN ×7 (01:45→22:08)
[2018-04-19 02:45] LABS: BASOPHILS % (AUTO) 0 % (0-1); EOSINOPHILS % (AUTO) 0 % (0-6); HEMATOCRIT 29.2 % (42.0-52.0); HEMOGLOBIN 9.9 g/dl (14.0-17.9); LYMPHOCYTES # (AUTO) 0.9 X10'3 (1.1-4.8); LYMPHOCYTES % (AUTO) 9.4 % (21-51); MEAN CORPUSCULAR HGB CONC 33.9 % (33.0-36.5); MEAN CORPUSCULAR VOLUME 103.4 FL (78-98); MEAN PLATELET VOLUME 8.4 FL (7.4-10.4); MONOCYTES # (AUTO) 0.8 X10'3 (0-0.9); MONOCYTES % (AUTO) 8.7 % (2-12); NEUTROPHILS # (AUTO) 7.9 X10'3 (1.8-7.7); NEUTROPHILS % (AUTO) 81.9 % (42-75); PLATELET COUNT 88 X10'3 (140-440); RED BLOOD COUNT 2.82 X10'6 (4.70-6.10); WHITE BLOOD COUNT 9.7 X10'3 (4.5-11.0)
[2018-04-19] MEDS: amiodarone/D5 360MG/200ML BAG 200 ML IV SCH ×2 (02:56→05:13)
[2018-04-19 03:01] LABS: ABG BASE EXCESS -0.6 mmol/L (-2.0-3.0); ABG HCO3 23.3 mmol/L (22.0-26.0); ABG OXYGEN SATURATION 88.2 % (95-98); ABG PCO2 (T) 35.3 mmHg (35.0-48.0); ABG PH (T) 7.436 (7.350-7.450); ABG PO2 (T) 55.1 mmHg (83-108); FCOHb 0.3 % (0.5-1.5); FMetHb 0.1 % (0.3-1.12); FO2Hb 87.8 % (94-100); MINUTE VOLUME 10 L/min; PATIENT TEMPERATURE 36.7; PEEP 10 cm H2O; RESPIRATORY RATE 12 b/min; RESPIRATORY RATE (OBSERVED) 13 b/min; TIDAL VOLUME 700 mL; TOTAL HEMOGLOBIN 10.7 G/dl (14.0-18.0)
[2018-04-19 03:10] LABS: ALANINE AMINOTRANSFERASE 27 U/L (12-78); ALBUMIN 2.6 G/DL (3.4-5.0); ALKALINE PHOSPHATASE 44 IU/L (46-116); ANION GAP 6 (8-16); ASPARTATE AMINO TRANSFERASE 78 U/L (10-37); BILIRUBIN,TOTAL 0.4 MG/DL (0.1-1.0); BLOOD UREA NITROGEN 19 MG/DL (7-18); BUN/CREATININE RATIO 17.6 (5.4-32.0); CALCIUM 7.6 MG/DL (8.5-10.1); CHLORIDE 106 MMOL/L (99-107); CREATININE 1.08 MG/DL (0.60-1.10); GLUCOSE 133 MG/DL (70-104); MAGNESIUM 2.6 MG/DL (1.5-2.4); PHOSPHORUS 3.2 MG/DL (2.3-4.5); POTASSIUM 4.3 MMOL/L (3.5-5.1); SODIUM 139 MMOL/L (135-145); TOTAL CARBON DIOXIDE 27.3 MMOL/L (24-32); TOTAL PROTEIN 5.1 G/DL (6.4-8.2); eGFR 69 ML/MIN
[2018-04-19] MEDS: potassium Cl 20mEq/100mL bag 100 ML IV PRN (03:27)
[2018-04-19 04:26] LABS: ABG BASE EXCESS 1.2 mmol/L (-2.0-3.0); ABG OXYGEN SATURATION 94.4 % (95-98); ABG PCO2 (T) 36.4 mmHg (35.0-48.0); ABG PH (T) 7.455 (7.350-7.450); ABG PO2 (T) 74.1 mmHg (83-108); FCOHb 0.2 % (0.5-1.5); FMetHb 0.3 % (0.3-1.12); FO2Hb 93.9 % (94-100); MINUTE VOLUME 9 L/min; PATIENT TEMPERATURE 36.8; PEEP 10 cm H2O; RESPIRATORY RATE 12 b/min; RESPIRATORY RATE (OBSERVED) 12 b/min; TIDAL VOLUME 700 mL; TOTAL HEMOGLOBIN 10.6 G/dl (14.0-18.0)
[2018-04-19] MEDS: propofol 1000mg/100ml bottle 100 ML IV PRN ×4 (04:41→22:13)
[2018-04-19] MEDS: insulin regular, human inj. 100 UNITS in normal saline 100ml IV soln 100 ML IV SCH ×2 (06:00)
[2018-04-19] MEDS: docusate sodium 100mg/10ml UD cup PO SCH ×2 (07:44→21:03)
[2018-04-19] MEDS: metoprolol tartrate 12.5mg (1/2 tablet) PO SCH ×2 (07:44→20:00)
[2018-04-19] MEDS: pantoprazole 40mg Tablet.DR PO SCH (07:44)
[2018-04-19] MEDS: atorvastatin 10mg tablet PO SCH (07:45)
[2018-04-19] MEDS: aspirin 325mg tablet, delayed-release (Ecotrin) PO SCH (07:45)
[2018-04-19 07:51] LABS: ACT @ 1.70 U 330 SEC (193-297); ACT @ 2.84 U 467 SEC (260-420); BASELINE ACT 154 SEC (101-148)
[2018-04-19 07:51] LABS: ACTIVATED CLOTTING TIME 151 SEC (101-148)
[2018-04-19] MEDS: insulin Lispro (HumaLOG) vial - multi-dose SQ SCH ×3 (09:00→18:00)
[2018-04-19] MEDS: sodium chloride 0.45% 1,000 ML IV SCH (13:31)
[2018-04-19 17:06] LABS: ABG BASE EXCESS 1.1 mmol/L (-2.0-3.0); ABG HCO3 24.7 mmol/L (22.0-26.0); ABG OXYGEN SATURATION 92.7 % (95-98); ABG PCO2 (T) 35.5 mmHg (35.0-48.0); ABG PO2 (T) 65.4 mmHg (83-108); FCOHb 0.2 % (0.5-1.5); FMetHb 0.1 % (0.3-1.12); FO2Hb 92.4 % (94-100); MINUTE VOLUME 9 L/min; PEEP 10 cm H2O; RESPIRATORY RATE 12 b/min; RESPIRATORY RATE (OBSERVED) 12 b/min; TIDAL VOLUME 700 mL; TOTAL HEMOGLOBIN 10.4 G/dl (14.0-18.0)
[2018-04-19] MEDS: pramipexole 0.25mg tablet PO SCH (21:03)
[2018-04-19] MEDS: traZODone 50mg tablet PO SCH (21:03)
[2018-04-20] VITALS (24 sets, daily range): BP systolic 109–163; BP diastolic 52–79
[2018-04-20] MEDS: morphine 4 MG/ML inj SYRINge IV PRN ×6 (00:48→14:30)
[2018-04-20] MEDS: propofol 1000mg/100ml bottle 100 ML IV PRN ×2 (01:06→05:48)
[2018-04-20 03:26] LABS: BASOPHILS % (AUTO) 0.1 % (0-1); EOSINOPHILS # (AUTO) 0.1 X10'3 (0-0.9); EOSINOPHILS % (AUTO) 1.2 % (0-6); HEMATOCRIT 26.2 % (42.0-52.0); HEMOGLOBIN 8.9 g/dl (14.0-17.9); LYMPHOCYTES # (AUTO) 0.7 X10'3 (1.1-4.8); LYMPHOCYTES % (AUTO) 9.8 % (21-51); MEAN CORPUSCULAR HEMOGLOBIN 35.2 PG (27.0-31.0); MEAN CORPUSCULAR VOLUME 103.6 FL (78-98); MEAN PLATELET VOLUME 8.3 FL (7.4-10.4); MONOCYTES # (AUTO) 0.7 X10'3 (0-0.9); MONOCYTES % (AUTO) 9.3 % (2-12); NEUTROPHILS # (AUTO) 6.1 X10'3 (1.8-7.7); NEUTROPHILS % (AUTO) 79.6 % (42-75); PLATELET COUNT 86 X10'3 (140-440); RED BLOOD COUNT 2.53 X10'6 (4.70-6.10); RED CELL DISTRIBUTION WIDTH 13.1 % (11.5-14.5); WHITE BLOOD COUNT 7.6 X10'3 (4.5-11.0)
[2018-04-20 03:32] LABS: ALANINE AMINOTRANSFERASE 27 U/L (12-78); ALBUMIN 2.3 G/DL (3.4-5.0); ALBUMIN/GLOBULIN RATIO 0.8 (1.1-1.5); ALKALINE PHOSPHATASE 50 IU/L (46-116); ANION GAP 7 (8-16); ASPARTATE AMINO TRANSFERASE 47 U/L (10-37); BILIRUBIN,TOTAL 0.5 MG/DL (0.1-1.0); BLOOD UREA NITROGEN 20 MG/DL (7-18); BUN/CREATININE RATIO 22.7 (5.4-32.0); CALCIUM 7.4 MG/DL (8.5-10.1); CHLORIDE 104 MMOL/L (99-107); CREATININE 0.88 MG/DL (0.60-1.10); GLUCOSE 136 MG/DL (70-104); MAGNESIUM 2.1 MG/DL (1.5-2.4); PHOSPHORUS 3.1 MG/DL (2.3-4.5); POTASSIUM 4.4 MMOL/L (3.5-5.1); SODIUM 138 MMOL/L (135-145); TOTAL CARBON DIOXIDE 27.1 MMOL/L (24-32); TOTAL PROTEIN 5.2 G/DL (6.4-8.2); eGFR 87 ML/MIN
[2018-04-20 03:40] LABS: ABG BASE EXCESS 1.3 mmol/L (-2.0-3.0); ABG HCO3 24.6 mmol/L (22.0-26.0); ABG OXYGEN SATURATION 93.8 % (95-98); ABG PCO2 (T) 33.5 mmHg (35.0-48.0); ABG PH (T) 7.483 (7.350-7.450); ABG PO2 (T) 70.4 mmHg (83-108); FCOHb 0.3 % (0.5-1.5); FMetHb 0.3 % (0.3-1.12); FO2Hb 93.2 % (94-100); MINUTE VOLUME 9 L/min; PATIENT TEMPERATURE 36.8; PEEP 10 cm H2O; RESPIRATORY RATE 12 b/min; RESPIRATORY RATE (OBSERVED) 12 b/min; TIDAL VOLUME 700 mL; TOTAL HEMOGLOBIN 9.6 G/dl (14.0-18.0)
[2018-04-20] MEDS: magnesium 1gm/100ml D5W IVPB 100 ML IV PRN ×2 (04:03→05:20)
[2018-04-20] MEDS: pantoprazole 40mg Tablet.DR PO SCH (07:23)
[2018-04-20] MEDS: docusate sodium 100mg/10ml UD cup PO SCH (07:24)
[2018-04-20] MEDS: atorvastatin 10mg tablet PO SCH (07:24)
[2018-04-20] MEDS: aspirin 325mg tablet, delayed-release (Ecotrin) PO SCH (07:24)
[2018-04-20] MEDS: metoprolol tartrate 12.5mg (1/2 tablet) PO SCH (07:24)
[2018-04-20 08:26] LABS: ABG BASE EXCESS 1.3 mmol/L (-2.0-3.0); ABG HCO3 25.2 mmol/L (22.0-26.0); ABG OXYGEN SATURATION 90.8 % (95-98); ABG PCO2 (T) 36.1 mmHg (35.0-48.0); ABG PO2 (T) 58.3 mmHg (83-108); FCOHb 0.3 % (0.5-1.5); FMetHb 0.1 % (0.3-1.12); FO2Hb 90.4 % (94-100); MINUTE VOLUME 10 L/min; PATIENT TEMPERATURE 36.5; PEEP 5 cm H2O; RESPIRATORY RATE (OBSERVED) 12 b/min; TOTAL HEMOGLOBIN 10.4 G/dl (14.0-18.0)
[2018-04-20] MEDS ORDERED: furosemide 40mg/4ml inj IV ONE (08:40)
[2018-04-20] MEDS: insulin Lispro (HumaLOG) vial - multi-dose SQ SCH ×3 (09:00→18:00)
[2018-04-20 09:04] LABS: ABG PO2 42.1 mmHg (60.0-100.0)
[2018-04-20] MEDS: ipratropium/albuterol 3ml nebule IH PRN (09:27)
[2018-04-20] MEDS: HYDROcodone/acetaminophen 10/325mg tab PO PRN ×2 (11:34→21:35)
[2018-04-20] MEDS ORDERED: metoprolol tartrate 25mg tablet PO ONE (14:55)
[2018-04-20 19:30] LABS: POTASSIUM 3.8 MMOL/L (3.5-5.1)
[2018-04-20] MEDS: metoprolol tartrate 50mg tablet PO SCH (20:00)
[2018-04-20] MEDS: pramipexole 0.25mg tablet PO SCH (21:33)
[2018-04-20] MEDS: traZODone 50mg tablet PO SCH (21:33)
[2018-04-20] MEDS: potassium Cl 20 mEq SR tablet PO PRN (21:34)
[2018-04-21] VITALS (23 sets, daily range): BP systolic 98–166; BP diastolic 64–84
[2018-04-21] MEDS: HYDROcodone/acetaminophen 10/325mg tab PO PRN ×6 (02:37→16:08)
[2018-04-21 03:03] LABS: BASOPHILS % (AUTO) 0.1 % (0-1); EOSINOPHILS # (AUTO) 0.1 X10'3 (0-0.9); HEMATOCRIT 28.2 % (42.0-52.0); HEMOGLOBIN 9.5 g/dl (14.0-17.9); LYMPHOCYTES # (AUTO) 0.6 X10'3 (1.1-4.8); LYMPHOCYTES % (AUTO) 8.3 % (21-51); MEAN CORPUSCULAR HEMOGLOBIN 34.3 PG (27.0-31.0); MEAN CORPUSCULAR HGB CONC 33.7 % (33.0-36.5); MEAN CORPUSCULAR VOLUME 101.9 FL (78-98); MEAN PLATELET VOLUME 8.1 FL (7.4-10.4); MONOCYTES # (AUTO) 0.7 X10'3 (0-0.9); MONOCYTES % (AUTO) 8.9 % (2-12); NEUTROPHILS # (AUTO) 6.1 X10'3 (1.8-7.7); NEUTROPHILS % (AUTO) 81.7 % (42-75); PLATELET COUNT 125 X10'3 (140-440); RED BLOOD COUNT 2.76 X10'6 (4.70-6.10); RED CELL DISTRIBUTION WIDTH 12.9 % (11.5-14.5); WHITE BLOOD COUNT 7.5 X10'3 (4.5-11.0)
[2018-04-21 03:22] LABS: ALANINE AMINOTRANSFERASE 30 U/L (12-78); ALBUMIN 2.5 G/DL (3.4-5.0); ALBUMIN/GLOBULIN RATIO 0.8 (1.1-1.5); ALKALINE PHOSPHATASE 55 IU/L (46-116); ANION GAP 6 (8-16); ASPARTATE AMINO TRANSFERASE 46 U/L (10-37); BILIRUBIN,TOTAL 0.9 MG/DL (0.1-1.0); BLOOD UREA NITROGEN 16 MG/DL (7-18); BUN/CREATININE RATIO 19.8 (5.4-32.0); CALCIUM 7.6 MG/DL (8.5-10.1); CHLORIDE 102 MMOL/L (99-107); CREATININE 0.81 MG/DL (0.60-1.10); GLUCOSE 128 MG/DL (70-104); MAGNESIUM 2.4 MG/DL (1.5-2.4); PHOSPHORUS 2.9 MG/DL (2.3-4.5); POTASSIUM 4.1 MMOL/L (3.5-5.1); SODIUM 136 MMOL/L (135-145); TOTAL CARBON DIOXIDE 28.2 MMOL/L (24-32); TOTAL PROTEIN 5.8 G/DL (6.4-8.2); eGFR > 90 ML/MIN
[2018-04-21] MEDS: potassium Cl 20mEq/100mL bag 100 ML IV PRN (03:36)
[2018-04-21] MEDS ORDERED: furosemide 40mg/4ml inj IV ONE (08:35)
[2018-04-21] MEDS: pantoprazole 40mg Tablet.DR PO SCH (08:37)
[2018-04-21] MEDS: metoprolol tartrate 50mg tablet PO SCH ×2 (08:38→19:58)
[2018-04-21] MEDS: aspirin 81mg tablet.DR PO SCH (08:38)
[2018-04-21] MEDS: atorvastatin 10mg tablet PO SCH (08:39)
[2018-04-21] MEDS: docusate sod 100mg capsule PO SCH ×2 (08:39→19:58)
[2018-04-21] MEDS: insulin Lispro (HumaLOG) vial - multi-dose SQ SCH ×3 (09:00→18:00)
[2018-04-21] MEDS ORDERED: amiodarone 200mg tablet PO ONE (11:40)
[2018-04-21] MEDS: sodium chloride 0.45% 1,000 ML IV SCH (13:31)
[2018-04-21 19:55] LABS: ALANINE AMINOTRANSFERASE 44 U/L (12-78); ALBUMIN 2.6 G/DL (3.4-5.0); ALBUMIN/GLOBULIN RATIO 0.7 (1.1-1.5); ALKALINE PHOSPHATASE 64 IU/L (46-116); ANION GAP 4 (8-16); ASPARTATE AMINO TRANSFERASE 54 U/L (10-37); BLOOD UREA NITROGEN 18 MG/DL (7-18); BUN/CREATININE RATIO 18.4 (5.4-32.0); CALCIUM 8.2 MG/DL (8.5-10.1); CHLORIDE 99 MMOL/L (99-107); CREATININE 0.98 MG/DL (0.60-1.10); GLUCOSE 162 MG/DL (70-104); MAGNESIUM 1.8 MG/DL (1.5-2.4); PHOSPHORUS 2.8 MG/DL (2.3-4.5); POTASSIUM 3.8 MMOL/L (3.5-5.1); SODIUM 134 MMOL/L (135-145); TOTAL CARBON DIOXIDE 30.9 MMOL/L (24-32); TOTAL PROTEIN 6.1 G/DL (6.4-8.2); eGFR 77 ML/MIN
[2018-04-21] MEDS: furosemide 40mg tablet PO SCH (19:58)
[2018-04-21] MEDS: amiodarone 200mg tablet PO SCH (19:58)
[2018-04-21] MEDS: pramipexole 0.25mg tablet PO SCH (20:39)
[2018-04-21] MEDS: traZODone 50mg tablet PO SCH (20:39)
[2018-04-21] MEDS: potassium Cl 20 mEq SR tablet PO PRN (20:39)
[2018-04-22] VITALS (24 sets, daily range): BP systolic 98–151; BP diastolic 61–95
[2018-04-22] MEDS: potassium Cl 20 mEq SR tablet PO PRN ×4 (00:54→14:45)
[2018-04-22] MEDS: HYDROcodone/acetaminophen 10/325mg tab PO PRN ×5 (00:54→21:51)
[2018-04-22 05:10] LABS: BASOPHILS % (AUTO) 0.2 % (0-1); EOSINOPHILS # (AUTO) 0.1 X10'3 (0-0.9); EOSINOPHILS % (AUTO) 1.3 % (0-6); HEMATOCRIT 27.7 % (42.0-52.0); HEMOGLOBIN 9.6 g/dl (14.0-17.9); LYMPHOCYTES # (AUTO) 0.8 X10'3 (1.1-4.8); LYMPHOCYTES % (AUTO) 12.2 % (21-51); MEAN CORPUSCULAR HEMOGLOBIN 35.2 PG (27.0-31.0); MEAN CORPUSCULAR HGB CONC 34.6 % (33.0-36.5); MEAN CORPUSCULAR VOLUME 101.8 FL (78-98); MEAN PLATELET VOLUME 7.4 FL (7.4-10.4); MONOCYTES # (AUTO) 0.7 X10'3 (0-0.9); MONOCYTES % (AUTO) 10.6 % (2-12); NEUTROPHILS # (AUTO) 5.2 X10'3 (1.8-7.7); NEUTROPHILS % (AUTO) 75.7 % (42-75); PLATELET COUNT 171 X10'3 (140-440); RED BLOOD COUNT 2.72 X10'6 (4.70-6.10); RED CELL DISTRIBUTION WIDTH 12.6 % (11.5-14.5); WHITE BLOOD COUNT 6.8 X10'3 (4.5-11.0)
[2018-04-22 05:24] LABS: ALANINE AMINOTRANSFERASE 39 U/L (12-78); ALBUMIN 2.5 G/DL (3.4-5.0); ALBUMIN/GLOBULIN RATIO 0.8 (1.1-1.5); ALKALINE PHOSPHATASE 59 IU/L (46-116); ANION GAP 6 (8-16); ASPARTATE AMINO TRANSFERASE 36 U/L (10-37); BILIRUBIN,TOTAL 0.9 MG/DL (0.1-1.0); BLOOD UREA NITROGEN 15 MG/DL (7-18); BUN/CREATININE RATIO 16.9 (5.4-32.0); CALCIUM 8.1 MG/DL (8.5-10.1); CHLORIDE 101 MMOL/L (99-107); CREATININE 0.89 MG/DL (0.60-1.10); GLUCOSE 106 MG/DL (70-104); MAGNESIUM 1.7 MG/DL (1.5-2.4); PHOSPHORUS 2.7 MG/DL (2.3-4.5); POTASSIUM 3.6 MMOL/L (3.5-5.1); SODIUM 138 MMOL/L (135-145); TOTAL CARBON DIOXIDE 31.4 MMOL/L (24-32); TOTAL PROTEIN 5.8 G/DL (6.4-8.2); eGFR 86 ML/MIN
[2018-04-22] MEDS: amiodarone 200mg tablet PO SCH ×2 (07:10→19:44)
[2018-04-22] MEDS: atorvastatin 10mg tablet PO SCH (07:10)
[2018-04-22] MEDS: pantoprazole 40mg Tablet.DR PO SCH (07:10)
[2018-04-22] MEDS: rivaroxaban 20mg tablet PO SCH (07:10)
[2018-04-22] MEDS: aspirin 81mg tablet.DR PO SCH (07:10)
[2018-04-22] MEDS: docusate sod 100mg capsule PO SCH ×2 (07:10→19:44)
[2018-04-22] MEDS: furosemide 40mg tablet PO SCH ×2 (07:10→19:44)
[2018-04-22] MEDS: metoprolol tartrate 50mg tablet PO SCH ×2 (07:11→19:44)
[2018-04-22] MEDS: insulin Lispro (HumaLOG) vial - multi-dose SQ SCH ×3 (08:49→17:43)
[2018-04-22] MEDS: ipratropium/albuterol 3ml nebule IH PRN (10:21)
[2018-04-22] MEDS: pramipexole 0.25mg tablet PO SCH (21:18)
[2018-04-22] MEDS: traZODone 50mg tablet PO SCH (21:18)
[2018-04-23] VITALS (13 sets, daily range): BP systolic 96–141; BP diastolic 63–94
[2018-04-23 05:57] LABS: BASOPHILS % (AUTO) 0.1 % (0-1); EOSINOPHILS # (AUTO) 0.2 X10'3 (0-0.9); HEMATOCRIT 28.8 % (42.0-52.0); HEMOGLOBIN 9.7 g/dl (14.0-17.9); LYMPHOCYTES # (AUTO) 0.9 X10'3 (1.1-4.8); LYMPHOCYTES % (AUTO) 11.1 % (21-51); MEAN CORPUSCULAR HEMOGLOBIN 34.8 PG (27.0-31.0); MEAN CORPUSCULAR HGB CONC 33.7 % (33.0-36.5); MEAN CORPUSCULAR VOLUME 103.2 FL (78-98); MEAN PLATELET VOLUME 7.3 FL (7.4-10.4); MONOCYTES # (AUTO) 0.8 X10'3 (0-0.9); MONOCYTES % (AUTO) 10.4 % (2-12); NEUTROPHILS # (AUTO) 5.9 X10'3 (1.8-7.7); NEUTROPHILS % (AUTO) 76.4 % (42-75); PLATELET COUNT 194 X10'3 (140-440); RED BLOOD COUNT 2.79 X10'6 (4.70-6.10); RED CELL DISTRIBUTION WIDTH 12.9 % (11.5-14.5); WHITE BLOOD COUNT 7.7 X10'3 (4.5-11.0)
[2018-04-23 06:38] LABS: ALANINE AMINOTRANSFERASE 35 U/L (12-78); ALBUMIN 2.5 G/DL (3.4-5.0); ALBUMIN/GLOBULIN RATIO 0.7 (1.1-1.5); ALKALINE PHOSPHATASE 62 IU/L (46-116); ANION GAP 6 (8-16); ASPARTATE AMINO TRANSFERASE 31 U/L (10-37); BILIRUBIN,TOTAL 0.8 MG/DL (0.1-1.0); BLOOD UREA NITROGEN 14 MG/DL (7-18); BUN/CREATININE RATIO 17.5 (5.4-32.0); CALCIUM 8.2 MG/DL (8.5-10.1); CHLORIDE 100 MMOL/L (99-107); GLUCOSE 104 MG/DL (70-104); MAGNESIUM 1.9 MG/DL (1.5-2.4); PHOSPHORUS 3.5 MG/DL (2.3-4.5); POTASSIUM 3.7 MMOL/L (3.5-5.1); SODIUM 138 MMOL/L (135-145); TOTAL CARBON DIOXIDE 32.4 MMOL/L (24-32); TOTAL PROTEIN 5.9 G/DL (6.4-8.2); eGFR > 90 ML/MIN
[2018-04-23] MEDS: rivaroxaban 20mg tablet PO SCH (07:00)
[2018-04-23] MEDS: atorvastatin 10mg tablet PO SCH (07:00)
[2018-04-23] MEDS: amiodarone 200mg tablet PO SCH (07:00)
[2018-04-23] MEDS: pantoprazole 40mg Tablet.DR PO SCH (07:03)
[2018-04-23] MEDS: docusate sod 100mg capsule PO SCH (07:03)
[2018-04-23] MEDS: HYDROcodone/acetaminophen 10/325mg tab PO PRN ×2 (07:03→12:32)
[2018-04-23] MEDS: aspirin 81mg tablet.DR PO SCH (07:03)
[2018-04-23] MEDS: furosemide 40mg tablet PO SCH (07:03)
[2018-04-23] MEDS: metoprolol tartrate 50mg tablet PO SCH (07:06)
[2018-04-23] MEDS ORDERED: magnesium Cl slow-release 64mg tablet PO PRN (07:25)
[2018-04-23] MEDS: potassium Cl 20 mEq SR tablet PO PRN ×2 (07:43→12:31)
[2018-04-23] MEDS ORDERED: ATOR10TA PO (11:16)
[2018-04-23] MEDS ORDERED: AMIO200T40 PO (11:16)
[2018-04-23] MEDS ORDERED: FURO-150 PO (11:16)
[2018-04-23] MEDS ORDERED: COL100C PO (11:16)
[2018-04-23] MEDS ORDERED: HYDR-3972 PO (11:16)
[2018-04-23] MEDS ORDERED: METO50TA16 PO (11:16)
[2018-04-23] MEDS ORDERED: POTA10TA36 PO (11:16)
== END 2018-04-23 13:00 | disposition home health service (06) | DRG 228 ==
LOC: ER 12:56 → ED HOLD 14:42 → CICU 2S 16:27 → ICU 2S 04-17 09:56
PROVIDERS: ADMIT Internal Medicine Critical Care Medicine; ATTEND Thoracic Surgery (Cardiothoracic Vascular Surgery)
PROC: 4A023N7 Measurement of Cardiac Sampling and Pressure, Left Heart, Percutaneous Approach (ICD-10-PCS; 2018-04-16)
PROC: B2111ZZ Fluoroscopy of Multiple Coronary Arteries using Low Osmolar Contrast (ICD-10-PCS; 2018-04-16)
PROC: B2151ZZ Fluoroscopy of Left Heart using Low Osmolar Contrast (ICD-10-PCS; 2018-04-16)
PROC: 021209W Bypass Coronary Artery, Three Arteries from Aorta with Autologous Venous Tissue, Open Approach (ICD-10-PCS; 2018-04-17)
PROC: 06BQ4ZZ Excision of Left Saphenous Vein, Percutaneous Endoscopic Approach (ICD-10-PCS; 2018-04-17)
PROC: 02Q Heart and Great Vessels, Repair (ICD-10-PCS; 2018-04-17)
PROC: 025S0ZZ Destruction of Right Pulmonary Vein, Open Approach (ICD-10-PCS; 2018-04-17)
PROC: 5A1221Z Performance of Cardiac Output, Continuous (ICD-10-PCS; 2018-04-17)
PROC: B24BZZ4 Ultrasonography of Heart with Aorta, Transesophageal (ICD-10-PCS; 2018-04-17)
PROC: 02L70CK Occlusion of Left Atrial Appendage with Extraluminal Device, Open Approach (ICD-10-PCS; 2018-04-17)
PROC: 30233M1 Transfusion of Nonautologous Plasma Cryoprecipitate into Peripheral Vein, Percutaneous Approach (ICD-10-PCS; 2018-04-17)
PROC: 30233R1 Transfusion of Nonautologous Platelets into Peripheral Vein, Percutaneous Approach (ICD-10-PCS; 2018-04-17)
PROC: 02580ZZ Destruction of Conduction Mechanism, Open Approach (ICD-10-PCS; 2018-04-17)
PROC: 02HV33Z Insertion of Infusion Device into Superior Vena Cava, Percutaneous Approach (ICD-10-PCS; 2018-04-17)
PROC: B548ZZA Ultrasonography of Superior Vena Cava, Guidance (ICD-10-PCS; 2018-04-17)
PROC: 02100Z9 Bypass Coronary Artery, One Artery from Left Internal Mammary, Open Approach (ICD-10-PCS; principal; 2018-04-17 07:01)
PROC: 3E02340 Introduction of Influenza Vaccine into Muscle, Percutaneous Approach (ICD-10-PCS; 2018-04-23)
DX: I25.110 Atherosclerotic heart disease of native coronary artery with unstable angina pectoris (principal); S25.4 Injury of pulmonary blood vessels; J96.00 Acute respiratory failure, unspecified whether with hypoxia or hypercapnia; I47.2 Ventricular tachycardia; I24.9 Acute ischemic heart disease, unspecified; I48.1 Persistent atrial fibrillation; Z68.41 Body mass index [BMI] 40.0-44.9, adult; E66.9 Obesity, unspecified; F12.90 Cannabis use, unspecified, uncomplicated; F41.9 Anxiety disorder, unspecified; G47.33 Obstructive sleep apnea (adult) (pediatric); M54.9 Dorsalgia, unspecified; G89.29 Other chronic pain; I10 Essential (primary) hypertension; I48.0 Paroxysmal atrial fibrillation; Z90.49 Acquired absence of other specified parts of digestive tract; Z23 Encounter for immunization; Z79.899 Other long term (current) drug therapy; Z79.01 Long term (current) use of anticoagulants; Z72.89 Other problems related to lifestyle; Z85.820 Personal history of malignant melanoma of skin; Z86.79 Personal history of other diseases of the circulatory system; Z87.891 Personal history of nicotine dependence; Z82.49 Family history of ischemic heart disease and other diseases of the circulatory system; Y92.238 Other place in hospital as the place of occurrence of the external cause; Y93.89 Activity, other specified; Y99.8 Other external cause status
CPT/HCPCS: 0232T; 93306; 93312; 93325; 93458; 96365; 96375; 99291; 36415; 36600; 71045; 80048; 80053; 80061; 81003; 82330; 82435; 82803; 82947; 82948; 83036; 83735; 84100; 84132; 84295; 84484; 85018; 85025; 85027; 85347; 85384; 85610; 85730; 86885; 86900; 86901; 86920; 87070; 93005; 93880; 93970; 93971; 94002; 94003; 94010; 94640; 94668; 94760; 97116; 97162; 97530; 99152; A4620; A6255; A6257; A6258; A6402; A6449; A7000; A7048; C1751; C1769; C2618; G0378; J0282; J0330; J0690; J1265; J1644; J1815; J1940; J2001; J2060; J2150; J2250; J2270; J2370; J2440; J2704; J2930; J3010; J3370; J3475; J3480; J3490; J7030; J7120; P9012; P9035; P9045; P9047; Q2037; Q9967

== ENCOUNTER 2018-05-04 14:47 | Outpatient (CLI) | payer OTHER ==
[~2018-05-04 14:47] MED LIST: AMIO200T40 PO; ATOR10TA PO; COL100C PO; FURO-150 PO; HYDR-3972 PO; METO50TA16 PO; OMEP20TA23 PO; POTA10TA36 PO; PRAM0.5T3 PO; RIVA20TA PO; TRAZ-219 PO
== END 2018-05-04 23:59 | disposition home or self-care (01) ==
LOC: CARD DIAG 14:47
PROVIDERS: ATTEND Thoracic Surgery (Cardiothoracic Vascular Surgery)
DX: I08.3 Combined rheumatic disorders of mitral, aortic and tricuspid valves (principal); I11.9 Hypertensive heart disease without heart failure; I31.3 Pericardial effusion (noninflammatory); I48.91 Unspecified atrial fibrillation; Z79.899 Other long term (current) drug therapy; Z87.891 Personal history of nicotine dependence
CPT/HCPCS: 93306